=== PATIENT | female | born 1955 | race Caucasian/White ===

== ENCOUNTER 2017-10-22 17:20 | Outpatient (CLI) | payer OTHER ==
--- NOTE | 2017-10-22 17:54 | RAD ---
TWO VIEW CHEST: History: Cough, congestion. FINDINGS: The lungs are clear. No infiltrates seen. Heart size upper normal. IMPRESSION: No focal infiltrate. POS: [id number]
== END 2017-10-22 17:21 | disposition home or self-care (01) ==
LOC: NAV RAD 17:20
PROVIDERS: ATTEND Nurse Practitioner Family
DX: R05 Cough (principal)
CPT/HCPCS: 71046